=== PATIENT | male | born 1975 | race Caucasian/White ===

== ENCOUNTER 2016-03-18 09:45 | Day surgery (SDC) | payer OTHER ==
[2016-03-13 15:17] VITALS: BMI 30.1
[~2016-03-18 09:45] MED LIST: LACTATED RINGERS 1,000 ML IV SCH
[2016-03-18] MEDS ORDERED: LIDOCAINE 1% 20 ML VIAL (10MG/ML) FOR IV START INTRADERMA ONE (10:32)
[2016-03-18] MEDS ORDERED: LACTATED RINGERS 1,000 ML IV ONE (10:32)
[2016-03-18 10:36] VITALS: RESP 18; TEMP 98.1
[2016-03-18] MEDS ORDERED: fentaNYL (PF) 50 MCG/ML 2 ML AMP ONE (11:25)
[2016-03-18] MEDS ORDERED: IOHEXOL 180 MG/ML 1 ML ML ONE (11:25)
[2016-03-18] MEDS ORDERED: TRIAMCINOLONE ACETONIDE 40 MG/ML 1 ML VIAL ONE (11:25)
[2016-03-18] MEDS ORDERED: MIDAZOLAM 2 MG/2 ML VIAL ONE (11:25)
--- NOTE | 2016-03-18 11:43 | FL ---
Fluoroscopy HISTORY: Pain 2 seconds fluoroscopy time supplied to the referring clinician. 1 intraoperative C-arm images docume nt the procedure. See dictated report from anesthesia.
--- NOTE | 2016-03-18 11:44 | P.PCN ---
Date of Procedure: 03/18/16 Procedure(s) Performed: PREOPERATIVE DIAGNOSIS: 1- Lumbar spinal stenosis. 2-Lumbar spondylosis with Facet arthropathy without myelopathy. 3-lumbar radiculopathy POSTOPERATIVE DIAGNOSIS: Same as preoperative diagnosis PROCEDURE 1. Lumbar epidural steroid injection under fluoroscopic guidance at the L4-5 level. 2. Lumbar epidurogram. ANESTHESIA: Local with 1% lidocaine 3 ml and IV sedation with Versed 2 mg , and fentanyle 100 Mcg EBL: Minimal PROCEDURE INDICATION: The patient with low back pain and radiculitis symptoms unresponsive to conservative treatment. Fluoroscopy was used to optimize visualization of the needle placement and to maximize safety. PROCEDURE DESCRIPTION / TECHNIQUE: The patient was seen and identified in the preoperative area. Risks, benefits , complications including but not limited to infections ,bleeding ,allergic reaction to the medications ,nerve damage and not complete pain releife , and alternatives were discussed with the patient. The patient agreed to proceed with the procedure and signed the consent. IV was started, and vital signs were stable. Patient was taken to the OR and time out was completed. The patient was placed in the prone position on procedure table and a pillow was placed under the abdomen to reduce lumbar lordosis. The lumbosacral area was prepped and draped in the usual sterile fashion.ere closely monitored during the procedure. Conscious sedation was used during the procedure to decrease patients anxiety. Vital signs was monitered during the entire procedure. Using anterior-posterior fluoroscopy, the L4-5 interlaminar space was identified and the skin over this site was marked and then infiltrated with 1% lidocaine subcutaneously. Subsequently, a 20-gauge Tuohy epidural needle was inserted and advanced toward the epidural space using the ``Loss of resistance technique and guided by AP and lateral fluoroscopy. The correct needle position in the epidural space was verified with the injection of 2 mL of the water soluble contrast dye Omnipaque 180 contrast and observing an excellent epidurogram with the epidural spread of the dye, after negative aspiration for blood and CSF and in the absence of paresthesias. Again after negative aspiration, a 6 ml mixture containing 80 mg of Kenalog and 2 ml of preservative free Normal Saline, and 2 ml of preservative free lidocaine 1% solution was injected and a washout of epidurogram was seen. Needle was withdrawn intact, skin was cleansed, and bandages were applied. COMPLICATIONS: None DISPOSITION / PLANS: The patient was placed in a supine position and transferred to the recovery area in a stable condition for observation. There was no evidence of lower extremity motor or sensory deficit after the procedure. Patient was discharged from the recovery room after meeting discharge criteria. Home discharge instructions were given to the patient by the staff. The patient was reexamined prior to discharge. The patient will schedule a follow up in the clinic in 4 weeks. I checked the urine drug screen today, which showed was positive for methadone, the patient denied that he has been taking methadone, patient will be seen in the pain clinic in a few weeks and, we will repeat the urine drug screen again.
[2016-03-18 11:47] VITALS: PULSE 67
[2016-03-18 12:00] VITALS: BP 128/84
[2016-03-18] MEDS ORDERED: IV FLUID CONTINUATION 1,000 ML IV ONE (12:05)
== END 2016-03-18 12:07 | disposition home or self-care (01) ==
LOC: ORPAIN 09:45
PROVIDERS: ATTEND Specialist
DX: M48.06 Spinal stenosis, lumbar region (principal); M47.26 Other spondylosis with radiculopathy, lumbar region; M46.96 Unspecified inflammatory spondylopathy, lumbar region
CPT/HCPCS: 62323; J2250; J3301; Q9965; J3010

== ENCOUNTER → 2016-04-15 | Outpatient (CLI) | payer OTHER ==
[2016-04-15 12:19] VITALS: BP 154/87; PULSE 83; RESP 18; TEMP 97.8
--- NOTE | 2016-04-15 13:22 | P.PN ---
Subjective This is follow-up visit for this patient with a history of severe and chronic neck pain and low back pain secondary to lumbar radiculopathy, lumbar spinal stenosis lumbar facet arthropathy, lumbar spinal stenosis , cervical radiculopathy cervical spinal stenosis ,we have done interventional pain management injection, lumbar epidural steroid injection x1 and this helped his low back pain and neck pain significantly, and is currently on pain medications 1-[place] 7.5/325 twice a day 2- Neurontin 300 mg twice a day patient reports that he is not taking the Neurontin as directed he forgets to take the medication several times, he denies any motor or sensory deficit, denies suicidal ideation, and he reported that the Neurontin make him sleepy when he takes I reviewed the urine toxic screen, that was done at the initial visit and it was positive for methadone, she reported that in the past before he comes to our clinic he mixed his medication with his girlfriend and he took up by mistake , Physical Examinations : 1-Constitutiona : Cooperative , not in acute distress . 2-HEENT : nech ; supple , no Lymphadenopathy , no Thyromegaly , normal thyroid size . eyes : no ptosis , no icterus, no photophobia . ENT : normal of hearing , normal oropharynx , no Thrush . 3- Respiratory : Chest clear to auscultations Bilaterally , no wheezing , no Rhonchi . 4- Cardiovascular : regular rate and rhythem , S1 , S2 , no S3 , no S4. 5- Gastrointestinal : abdomen soft no tenderness , bowel sounds positive all four quadrents , no organomegally . 6- Genitourinary : Defferred . 7- neurologic : Cranial nerve II to XII intact , no focal neurological deffecit . 8-psychatric : alert , oriented X 3 , appropriate affect , intact judgment and insight . 9-Lymphatic : no Lymphadenopathy . 10- musculoskeltal : exams of the cervical spine = motor strength normal bilateral upper extremities facet loading test cervical area positive. exams of the Lumber spine = motor strength lower extremities ,thigh and legs .5/5 deep tendon reflexes : normal Knee Jerk , normal ankle Jerk . lumber facet Loading Test positive strait leg raising test positive at 30 degree , RT ,LT , Fabere test positive RT and positive LT . Range of motion: Range of motion in flexion of the lumbar spine 30 degrees Range of motion range of motion of extension of the lumbar spine 10 Sever tenderness over the Sacroiliac joint on the Right , and Left side Assessment and plan = - lumbar radiculopathy , lumbar spinal stenosis, lumbar spondylosis with facet arthropathy without myelopathy , cervical radiculopathy, cervical spinal stenosis - diagnoses, prognosis, and treatment options including but not limited to physical therapy, surgical interventions, interventional therapies , and medication management including narcotics and adjuvant medication were discussed with the patient and all The questions answered -medication management = urine drug screen today, 2-continue [place] 7.5/ 325 every 6 hours 3-decrease in Neurontin 100 mg 2 tablets 3 times a day -procedure= scheduled patient to have lumbar epidural steroid injection under fluoroscopy guidance
== END | disposition home or self-care (01) ==
LOC: PNWHC3 11:57
PROVIDERS: ATTEND Specialist
DX: M54.16 Radiculopathy, lumbar region (principal); M48.06 Spinal stenosis, lumbar region; M47.816 Spondylosis without myelopathy or radiculopathy, lumbar region; M46.96 Unspecified inflammatory spondylopathy, lumbar region; M54.12 Radiculopathy, cervical region; M48.02 Spinal stenosis, cervical region; Z79.899 Other long term (current) drug therapy
CPT/HCPCS: 80307 ×2; G0480 ×2; G0463; 80353; 80364; 99211

== ENCOUNTER 2017-01-06 15:12 | Emergency (ER) | payer OTHER ==
[2017-01-06 15:24] VITALS: BP 134/89; PULSE 99; RESP 20; TEMP 99.1
[2017-01-06] MEDS ORDERED: ORPHENADRINE 30 MG/ML 2 ML VIAL IM STA (15:36)
[2017-01-06] MEDS ORDERED: KETOROLAC 60 MG/2 ML VIAL IM STA (15:36)
[2017-01-06] MEDS ORDERED: methylPREDNISolone SOD SUCCI 125 MG/2 ML VIAL IM STA (15:53)
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
== END 2017-01-06 16:06 | disposition home or self-care (01) ==
LOC: EC 15:12
DX: M54.16 Radiculopathy, lumbar region (principal); F17.200 Nicotine dependence, unspecified, uncomplicated; Z79.899 Other long term (current) drug therapy; Z91.030 Bee allergy status
CPT/HCPCS: 99283; 96372 ×3; J2360; J2930; J1885

== ENCOUNTER → 2017-04-19 | Outpatient (CLI) | payer OTHER ==
--- NOTE | 2017-04-19 11:48 | XR ---
EXAMINATION TYPE: XR chest 2V DATE OF EXAM: 04/19/2017 COMPARISON: 02/04/2016 INDICATION: Presurgical clearance, history of heart attack TECHNIQUE: Frontal and lateral views of the chest are obtained. FINDINGS: The heart size is normal. The pulmonary vasculature is normal. The lungs are clear. IMPRESSION: 1. No acute pulmonary process.
[2017-04-19 12:10] LABS: Appearance,Urine Clear (Clear); Bilirubin,Urine Negative (Negative); Blood,Urine Negative (Negative); Color,Urine Yellow; Glucose,Urine (UA) Negative (Negative); Ketones,Urine Negative (Negative); Leukocyte Esterase,Urine Negative (Negative); Nitrite,Urine Negative (Negative); Protein,Urine Negative (Negative); Specific Gravity,Urine 1.022 (1.001-1.035)
[2017-04-19 12:12] LABS: Basophils # (A) 0.1 k/uL (0-0.2); Basophils % (A) 1 %; Eosinophils # (A) 0.4 k/uL (0-0.7); Eosinophils % (A) 4 %; HGB 14.3 gm/dL (13.0-17.5); Lymphocytes # (A) 3.2 k/uL (1.0-4.8); Lymphocytes % (A) 36 %; MCH 28.9 pg (25.0-35.0); MCHC 31.8 g/dL (31.0-37.0); MCV 90.7 fL (80.0-100.0); Mean Platelet Volume 6.4; Monocytes # (A) 0.5 k/uL (0-1.0); Monocytes % (A) 6 %; Neutrophils # (A) 4.5 k/uL (1.3-7.7); Neutrophils % (A) 51 %; Platelet Count 311 k/uL (150-450); RBC 4.96 m/uL (4.30-5.90); RDW 13.6 % (11.5-15.5); WBC 8.8 k/uL (3.8-10.6)
[2017-04-19 12:23] LABS: Anion Gap 10 mmol/L; Blood Urea Nitrogen 19 mg/dL (9-20); Carbon Dioxide 29 mmol/L (22-30); Chloride 104 mmol/L (98-107); Glucose 88 mg/dL (74-99); Potassium 5.5 mmol/L (3.5-5.1); Sodium 143 mmol/L (137-145)
[2017-04-19 12:31] LABS: Partial Thromboplastin Time 22.2 sec (22.0-30.0); Prothrombin Time 9.8 sec (9.0-12.0)
== END | disposition home or self-care (01) ==
LOC: LABPAT 11:13
PROVIDERS: ATTEND Orthopaedic Surgery Orthopaedic Surgery of the Spine
DX: Z01.812 Encounter for preprocedural laboratory examination (principal); M51.26 Other intervertebral disc displacement, lumbar region
CPT/HCPCS: 36415; 71046; 80048; 81003; 85025; 85610; 85730; 86850; 86900; 86901

== ENCOUNTER 2017-04-28 06:04 | Day surgery (SDC) | payer OTHER ==
[2017-04-20 14:47] VITALS: BMI 30.1
[~2017-04-28 06:04] MED LIST changes: +BACITRACIN 50,000 UNIT, POLYMYXIN B 500,000 UNIT in SODIUM CHLORIDE 0.9% IRRIGATIO 1,00... IRRIGATION ONE; +HYDROmorphone 0.5 MG/0.5 ML SYRINGE IVP PRN; +ONDANSETRON 4 MG/2 ML VIAL IVP ONE; +ceFAZolin IN SWFI 2 GM/20 ML SYRINGE IVP ONE
[2017-04-28 06:42] VITALS: RESP 16
[2017-04-28] MEDS ORDERED: LIDOCAINE 1% 20 ML VIAL (10MG/ML) FOR IV START INTRADERMA ONE (06:56)
[2017-04-28] MEDS: DEXAMETHASONE SOD PHOSPHATE 10 MG/ML 1 ML VIAL IV ONE ×2 (06:56→11:02)
[2017-04-28 07:19] LABS: Anion Gap 10 mmol/L; Blood Urea Nitrogen 18 mg/dL (9-20); Calcium 9.6 mg/dL (8.4-10.2); Carbon Dioxide 26 mmol/L (22-30); Chloride 107 mmol/L (98-107); Glucose 97 mg/dL (74-99); Potassium 4.5 mmol/L (3.5-5.1); Sodium 143 mmol/L (137-145)
[2017-04-28] MEDS ORDERED: MORPHINE SULFATE 10 MG/ML SYRINGE ONE (08:08)
[2017-04-28] MEDS ORDERED: ROCURONIUM BROMIDE 10 MG/ML 10 ML VIAL IV ONE (08:08)
[2017-04-28] MEDS ORDERED: GLYCOPYRROLATE 0.2 MG/ML 2 ML VIAL ONE (08:08)
[2017-04-28] MEDS ORDERED: DEXAMETHASONE SOD PHOS (MDV) 100 MG/10 ML VIAL ONE (08:08)
[2017-04-28] MEDS ORDERED: fentaNYL (PF) 50 MCG/ML 2 ML AMP ONE (08:08)
[2017-04-28] MEDS ORDERED: SUCCINYLCHOLINE CHLORIDE 100 MG/5 ML SYR IV ONE (08:08)
[2017-04-28] MEDS ORDERED: MIDAZOLAM 2 MG/2 ML VIAL ONE (08:08)
[2017-04-28] MEDS ORDERED: PROPOFOL 10 MG/ML 20 ML VIAL IV ONE (08:08)
[2017-04-28] MEDS ORDERED: NEOSTIGMINE 1 MG/ML 10 ML VIAL ONE (08:08)
[2017-04-28] MEDS ORDERED: methylPREDNISolone ACETATE 40 MG/ML 1 ML VIAL MISCELLANE ONE (08:20)
[2017-04-28] MEDS ORDERED: LIDOCAINE 0.5% (PF) 5 MG/ML (50 ML SDV) SQ ONE (08:20)
[2017-04-28] MEDS ORDERED: THROMBIN (BOVINE) 5,000 UNIT VIAL TOPICAL ONE (08:20)
[2017-04-28] MEDS ORDERED: GELATIN SPONGE,ABSORB (LARGE) 1 EACH SPONGE TOPICAL ONE (08:20)
--- NOTE | 2017-04-28 09:04 | FL ---
EXAMINATION TYPE: FL guidance operating room, XR lumbar spine 1V DATE OF EXAM: 04/28/2017 COMPARISON: NONE HISTORY: 41-year-old male lumbar laminectomy and discectomy FINDINGS: Single image demonstrating metallic hardware posteriorly at the L5 level. FLUOROSCOPY Fluoroscopy time of 3 seconds was used during lumbar laminectomy and discectomy. 1 image/s document/ s the procedure. IMPRESSION: Intraoperative fluoroscopy as above.
[2017-04-28] MEDS ORDERED: MORPHINE SULFATE 4 MG/ML SYRINGE IVP PRN ×2 (09:36)
[2017-04-28] MEDS ORDERED: IBUPROFEN 600 MG TAB PO PRN (09:36)
[2017-04-28] MEDS ORDERED: MAGNESIUM HYDROXIDE 2,400 MG/10 ML CUP PO PRN (09:36)
[2017-04-28] MEDS ORDERED: DIAZEPAM 5 MG TAB PO PRN (09:36)
[2017-04-28] MEDS ORDERED: ONDANSETRON 4 MG/2 ML VIAL IVP PRN (09:36)
[2017-04-28] MEDS ORDERED: KETOROLAC 30 MG/ML 1 ML VIAL IVP PRN (09:36)
[2017-04-28] MEDS ORDERED: BENZOCAINE/MENTHOL LOZENG 1 EACH LOZENGE MUCOUS MEM PRN (09:36)
[2017-04-28] MEDS ORDERED: oxyCODONE-APAP 10-325MG 1 EACH TAB PO PRN (09:38)
--- NOTE | 2017-04-28 09:43 | P.OP ---
Date of Procedure: 04/28/17 Preoperative Diagnosis: Herniated nucleus pulposis L4 5 Right lower extremity radiculopathy Postoperative Diagnosis: Same Anesthesia: GETA Pathology: none sent Condition: stable Disposition: PACU Description of Procedure: BRIEF OPERATIVE NOTE Preoperative Diagnosis: Herniated nucleus pulposis L4 5, right lower extremity radiculopathy Postoperative Diagnosis: Same Procedure: Laminectomy and decompression L4 5 Discectomy for decompression L4 5 Use of fluoroscopic guidance Surgeon: Dr. [employer] Engineer: Gómez Lynne is present throughout the entire the case persistence during positioning, dissection, exposure, visualization, and all crucial elements of the case as well as closure. Anesthesia: General anesthesia Estimated blood loss: Less than 20 mL Complications: None apparent Components implanted: None Disposition: To recovery room in good stable condition. OPERATIVE INDICATIONS The patient has been having issues in their lower back and lower extremities. He primarily had pain in his right lower extremity over a L5 distribution. His found have disc protrusion with annular tear and small herniation at L4 5 on the right which correlated well with his right lower extremity symptoms. The patient has been through conservative treatment. We attempted aggressive conservative treatment but he is not having any prolonged benefit despite this. He is having worsening debility due to his symptoms. We discussed various treatment options including surgery, and the patient wishes to proceed with surgery We discussed the risk, patient's alternatives and benefits of surgery including but not limited to, risk of bleeding risk of infection, risk of need for further surgery, risk of decreased, loss of motion, loss of function, nerve damage, paralysis, heart attack, blindness and . OPERATIVE SUMMARY After discussing all the risks, patient alternatives and benefits at length, the patient elected to proceed with surgical intervention, signed informed consent, and presented for their procedure. The patient was seen and examined in the preoperative holding area and the surgical site was marked. The patient was given antibiotics and brought to the operating room. The patient was sedated and intubated by anesthesia in standard fashion. The patient was positioned on to the operating room table in a prone position on the appropriate frame which was well-padded and well molded. We were careful to pad any bony prominences and pressure points. We were careful to maintain the patient's cervical spine and good neutral alignment and position throughout. The patient was prepped and draped in a normal standard fashion. An appropriate timeout and keystone protocol performed. We were able to proceed with the surgery. Fluoroscopy was utilized to establish the appropriate level at L4 5. The local wound area was infiltrated with local anesthetic. An incision was made at the midline longitudinally over the appropriate levels at L4 5. Dissection was taken down subcutaneously to the level of the fascia which was split midline. Dissection was taken over the lamina. Intraoperative fluoroscopy was taken which showed a marker at the appropriate level at L4 5. With the appropriate level positively confirmed, we were able to proceed with laminectomy. The wound was copiously irrigated and suctioned dry as had been done periodically throughout the case. I performed a laminectomy with a combination of curettes and a high-speed bur and Kerrison rongeurs. A small medial facetectomy was performed again further access. A partial foraminotomy was also performed. Portions of the ligamentum flavum were taken down to expose the dura and traversing nerve root. I was able to mobilize the traversing nerve root and gain access to the disc space. Note was made of obvious compression from the disc. Protecting the soft tissue structures, a small annulotomy was established. I was able to perform discectomy and remove any extruded disc fragments and any loose fragments from within the disc itself. There is some disc desiccation noted. I tried to preserve the disc annulus that appeared stable. There were no further extruded fragments noted. There is no evidence of dural tear or leak. Good hemostasis maintained. The wound was copiously irrigated and suctioned dry. Good decompression and discectomy was noted. We were able to proceed with closure. The fascia was closed for a watertight closure. The subcuticular tissue was closed with absorbable suture. The wound was cleaned and dried and dressed with the appropriate dressing. The drapes were broken down. The patient was gently rolled back onto their hospital bed being careful to maintain their cervical spine and good neutral alignment and position. They were woken up by anesthesia, extubated, and brought to the recovery room in good stable condition. The patient will be admitted to the hospital for observation and for appropriate postoperative care, medical management and monitoring. We will continue to follow them closely about the postoperative course.
[2017-04-28] MEDS ORDERED: SODIUM CHLORIDE 0.9% 1,000 ML IV SCH (09:45)
[2017-04-28] MEDS ORDERED: diphenhydrAMINE 50 MG/ML 1 ML VIAL IVP ONE (09:45)
[2017-04-28 09:49] VITALS: TEMP 97
[2017-04-28] MEDS ORDERED: LACTATED RINGERS 1,000 ML IV ONE (10:06)
[2017-04-28 10:18] VITALS: BP 116/73; PULSE 58
[2017-04-28] MEDS ORDERED: ceFAZolin IN SWFI 2 GM/20 ML SYRINGE IVP SCH (16:00)
[2017-04-28] MEDS ORDERED: GABAPENTIN 300 MG CAP PO SCH (21:00)
[2017-04-29] MEDS ORDERED: SENNOSIDES-DOCUSATE SODIUM 1 EACH TAB PO SCH (09:00)
[2017-04-29] MEDS ORDERED: FAMOTIDINE 20 MG TAB PO SCH (09:00)
== END 2017-04-28 13:41 | disposition home or self-care (01) ==
LOC: OR 06:04 → 3SUR 09:30 → OR 13:41
PROVIDERS: ATTEND Orthopaedic Surgery Orthopaedic Surgery of the Spine
DX: M51.16 Intervertebral disc disorders with radiculopathy, lumbar region (principal); M47.817 Spondylosis without myelopathy or radiculopathy, lumbosacral region; M47.816 Spondylosis without myelopathy or radiculopathy, lumbar region; M54.12 Radiculopathy, cervical region; R07.89 Other chest pain; I10 Essential (primary) hypertension; F41.9 Anxiety disorder, unspecified; K21.9 Gastro-esophageal reflux disease without esophagitis; E66.3 Overweight; Z68.29 Body mass index [BMI] 29.0-29.9, adult; R06.2 Wheezing; Z95.5 Presence of coronary angioplasty implant and graft; Z79.891 Long term (current) use of opiate analgesic; Z79.899 Other long term (current) drug therapy; Z91.048 Other nonmedicinal substance allergy status; Z82.49 Family history of ischemic heart disease and other diseases of the circulatory system; F17.210 Nicotine dependence, cigarettes, uncomplicated; Z91.030 Bee allergy status
CPT/HCPCS: 86900; 86901; 80048; 86850; 72020; 63030; J2250; J1200; J1030; J2710; J2270; J2405; J2001; J3010; J1100; J0330; J2704; J0690

== ENCOUNTER 2019-07-01 11:57 | Emergency (ER) | payer OTHER ==
[2019-07-01 12:04] VITALS: RESP 18
[2019-07-01] MEDS ORDERED: KETOROLAC 30 MG/ML 1 ML VIAL IM STA (12:13)
[2019-07-01] MEDS ORDERED: HYDROmorphone 1 MG/ML 1 ML SYRINGE IM STA (12:13)
[2019-07-01] MEDS ORDERED: DIAZEPAM 5 MG/ML 2 ML INJ IM ONE (12:13)
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
[2019-07-01 13:59] VITALS: BP 119/84; PULSE 81; TEMP 98
== END 2019-07-01 13:40 | disposition home or self-care (01) ==
LOC: EC 11:57
DX: M54.16 Radiculopathy, lumbar region (principal); M62.830 Muscle spasm of back; G89.29 Other chronic pain; M54.5 Low back pain; F17.200 Nicotine dependence, unspecified, uncomplicated; Z91.030 Bee allergy status; Z79.891 Long term (current) use of opiate analgesic; Z95.5 Presence of coronary angioplasty implant and graft
CPT/HCPCS: 96372 ×4; 99283 ×2; J3360; J1885; J1170

== ENCOUNTER → 2023-09-15 | Outpatient (CLI) | payer OTHER ==
--- NOTE | 2023-09-15 21:48 | MR ---
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 IV Contrast: cc . (None if empty) FINDINGS: Alignment: The lumbar vertebral bodies have preserved heights and alignment. Cord: The conus medullaris and the distal spinal cord appear unremarkable with regards to their signa l intensity and morphology. Bones/Discs: Moderate degeneration changes throughout the spine with osteophyte formation and facet j oint arthropathy. Intervertebral disc signal is maintained. Reactive adjoining endplate edema at L5-S 1 T12-L1: No evidence of significant spinal canal stenosis or neural foraminal stenosis. L1-L2: No evidence of significant spinal canal stenosis or neural foraminal stenosis. L2-L3: No evidence of significant spinal canal stenosis or neural foraminal stenosis. L3-L4: Disc bulge and facet joint arthropathy result in mild spinal canal and severe right and mild t o moderate left neural foraminal stenosis. . L4-L5: Eccentric right Disc bulge and facet joint arthropathy result in mild spinal canal and severe bilateral neural foraminal stenosis. L5-S1: The disc has a rounded posterior morphology without significant spinal canal stenosis. Facet j oint arthropathy with severe bilateral neural foraminal stenosis. No significant spinal canal or neural foraminal stenosis in the remainder of the visualized levels. Other findings: Left peripelvic renal cysts. IMPRESSION: 1. 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 2. No evidence for significant spinal canal stenosis.
== END | disposition home or self-care (01) ==
LOC: RADMRIMAIN 20:45
PROVIDERS: ATTEND Orthopaedic Surgery Orthopaedic Surgery of the Spine
DX: M48.061 Spinal stenosis, lumbar region without neurogenic claudication (principal); M51.36 Other intervertebral disc degeneration, lumbar region; M51.37 Other intervertebral disc degeneration, lumbosacral region; M54.41 Lumbago with sciatica, right side; M47.816 Spondylosis without myelopathy or radiculopathy, lumbar region; M47.817 Spondylosis without myelopathy or radiculopathy, lumbosacral region
CPT/HCPCS: 72148